=== PATIENT | male | born 1995 | race Caucasian/White ===

== ENCOUNTER 2016-12-15 16:34 | Emergency (ER) | payer BC ==
[~2016-12-15] VITALS: Ht 172.7 cm; Wt 76.0 kg
[~2016-12-15 16:34] MED LIST: CETI10TA84 PO
[2016-12-15 17:08] VITALS: TEMP 37.1; Ht 172.7 cm; Wt 76.0 kg
[2016-12-15] MEDS ORDERED: CLINDAMYCIN HCL 150 MG CAP PO ONE (18:15)
[2016-12-15] MEDS ORDERED: PERCOCET HOME PACK PO ONE (18:15)
[2016-12-15] MEDS ORDERED: OXYC-57 PO (18:21)
--- NOTE | 2016-12-15 18:23 | EMERGENCY ROOM VISIT NOTE ---
History First contact with patient: 17:28 Chief Complaint: WOUND INFECTION Stated Complaint: LARGE LUMP ABOVE TAILBONE, PAINFUL Nursing Triage Summary: patient states "I think I have a pilonidal cyst or something, a big lump by my tailbone, my friend has had a bunch and he said it sounds like that. I went to [facility] on Friday and they gave me a prescription for abx, but I knew I would be drinking this weekend so I didn't bother getting them" History of Present Illness The patient is a 21 year old male who presents to the Emergency Room with complaints of a painful mass above his tailbone for the last week. It is not draining anything. It is difficult to sit down. He was seen at [facility]. He prescribed antibiotics and pain killers. He has not filled the prescription. He denies any history of pilonidal cyst. Review of Systems 6 system review negative. Please see pertinent positives in the history of present illness section. Past Medical/Surgical History Otherwise healthy Social History Smoking Status: Never Smoker Alcohol Use: occasionally Current/Historical Medications Scheduled PRN Cetirizine (Zyrtec), 10 MG PO DAILY PRN for ALLERGIC REACTION Oxycodone/Acetaminophen 5MG/325MG (Percocet 5MG/325MG), 1-2 TABS PO Q4H PRN for Pain Physical Exam Vital Signs Date Time Temp Pulse Resp B/P (MAP) Pulse Ox O2 Delivery O2 Flow Rate FiO2 12/15/16 18:44 89 16 95/71 99 12/15/16 17:08 37.1 83 20 142/89 96 Room Air Physical Exam VITALS: Vitals are noted on the nurse's note and reviewed by myself. Vital signs stable. GENERAL: 21-year-old male, in no acute distress, nondiaphoretic, well-developed well-nourished. SKIN: There is an area of erythema and induration to the left of the gluteal cleft. No fluctuance. No pointing. Tenderness noted.. HEAD: Normocephalic atraumatic. MUSCULOSKELETAL: Strength 5/5 throughout. NEURO: Patient was alert and oriented to person place and time. Normal sensation to touch. No focal neurological deficits. Medical Decision & Procedures Medications Administered Medications (Trade) Dose Ordered Sig/Idalia Route Start Time Stop Time Status Last Admin Dose Admin Clindamycin HCl (Cleocin Cap) 300 mg NOW ONCE PO 12/15/16 18:15 12/15/16 18:16 DC 12/15/16 18:39 300 MG Oxycodone/ Acetaminophen (Percocet 5/ 325MG Home Pack) 1 homepack UD ONCE PO 12/15/16 18:15 12/15/16 18:16 DC 12/15/16 18:39 1 HOMEPACK ED Course The patient was seen and examined He was given 1 dose of clindamycin 300 mg He was given a home pack Percocet Discharge instructions were reviewed, and he was discharged in good condition Medical Decision Differential diagnosis: Abscess, cellulitis, pilonidal cyst This patient is a 21-year-old male that presented to the emergency department with complaints of a painful, erythematous mass above his tailbone. On exam, the patient does have a developing pilonidal cyst. Unfortunately, it is not drainable at this point. The patient was instructed to continue to do warm compresses. If it does not resolve on its own, he will return in 48 hours for further evaluation and possible incision and drainage. Of note, the patient was seen earlier this week at [facility]. He was prescribed clindamycin. He was told to continue taking this as prescribed. He was also given a prescription for Percocet for pain control. Medication Reconcilliation Current Medication List: was personally reviewed by me Blood Pressure Screening Patient's blood pressure: Normal blood pressure Impression Primary Impression: Pilonidal cyst Departure Information Dispostion Home / Self-Care Condition GOOD Prescriptions Oxycodone/Acetaminophen 5MG/325MG (PERCOCET 5MG/325MG) Tab 1-2 TABS PO Q4H Y for Pain, #15 TAB For Initial Treatment Prov: Katherin Kenyon PA-C 12/15/16 Referrals No Doctor, Assigned (PCP) Patient Instructions My [facility] Additional Instructions Please apply warm compresses, soak in a warm tub or take warm showers 3 times daily. Please take the antibiotics as prescribed. Ibuprofen 600 mg every 6 hours Percocet 1-2 tabs every 4 hours for severe pain. Do not drink alcohol or drive while taking this medication. This may be taken with ibuprofen, but avoid Tylenol If the pain and swelling does not go away, please return to the emergency department 48 hours for reevaluation. This will likely need to be drained. Please return sooner for any severe symptoms such as fever or severe, uncontrolled pain.
[2016-12-15 18:44] VITALS: BP 95/71; PULSE 89; O2SAT 99
== END 2016-12-15 18:47 | disposition home or self-care (01) ==
LOC: C.EDB 16:36 → C.EDD 18:47
DX: L05.91 Pilonidal cyst without abscess (principal)

== ENCOUNTER 2016-12-17 10:08 | Emergency (ER) | payer BC ==
[~2016-12-17] VITALS: Ht 172.7 cm; Wt 76.3 kg
[~2016-12-17 10:08] MED LIST changes: +OXYC-57 PO
[2016-12-17 10:11] VITALS: TEMP 36.8; Ht 172.7 cm; Wt 76.3 kg
[2016-12-17] MEDS ORDERED: LIDOCAINE/EPINEPHRINE 1% 20 ML VIAL INFIL STA (10:30)
[2016-12-17] MEDS ORDERED: CLC/300 PO (10:31)
[2016-12-17] MEDS ORDERED: OXYC-57 PO ×2 (10:32→11:52)
[2016-12-17] MEDS ORDERED: CEPH500C2 PO (11:22)
[2016-12-17] MEDS ORDERED: SULF800T23 PO ×2 (11:22→11:51)
[2016-12-17] MEDS ORDERED: CEPH500C PO (11:51)
[2016-12-17 11:54] VITALS: BP 113/68; PULSE 78; O2SAT 98
--- NOTE | 2016-12-17 11:54 | EMERGENCY ROOM VISIT NOTE ---
History First contact with patient: 10:24 Chief Complaint: WOUND INFECTION Stated Complaint: PILONIDAL CYST NEEDS DRAINED Nursing Triage Summary: pt reports seen here 2 days ago pilodial cyst told to come back today to have drained. History of Present Illness The patient is a 21 year old male who presents to the Emergency Room via private vehicle with complaints of "pilonidal cyst needs drained". The patient states he was seen her 2 days ago, for a possible cyst, but at that time it was not ready to be drained. He states he now feels much larger, and believes it should be drained. He has been on clindamycin. It is worsening. His tetanus is up-to-date, poorly so the best of his knowledge. He denies having this before. He states that he feels nauseous, believes this could be from the Percocet. Review of Systems A complete 6-point Review of Systems was discussed with the patient, with pertinent positives and negatives listed in the History of Present Illness. All remaining Review of Systems questions can be considered negative unless otherwise specified. Past Medical/Surgical History No pertinent. Family History High blood pressure Social History Smoking Status: Never Smoker Alcohol Use: occasionally Patient is a [employer] student. Current/Historical Medications Scheduled Cephalexin Monohydrate (Keflex), 500 MG PO QID Clindamycin HCl (Clindamycin HCl), 1 CAP PO QID Sulfa/Trimethoprim (Bactrim Ds 800MG/160MG), 1 TAB PO BID Scheduled PRN Oxycodone/Acetaminophen 5MG/325MG (Percocet 5MG/325MG), 1-2 TABLETS PO Q4H PRN for Pain Oxycodone/Acetaminophen 5MG/325MG (Percocet 5MG/325MG), 1 TAB PO Q6 PRN for Pain Physical Exam Vital Signs Date Time Temp Pulse Resp B/P (MAP) Pulse Ox O2 Delivery O2 Flow Rate FiO2 12/17/16 11:54 78 18 113/68 98 Room Air 12/17/16 10:11 36.8 98 18 147/79 96 Room Air Physical Exam VITAL SIGNS - Vital signs and nursing notes were reviewed. Stable. GENERAL - 21-year-old male appearing his stated age who is in no acute distress. Communicates well with provider and answers questions appropriately. SKIN - Large 3cm x 2cm raised, oval shaped abscess on left superior gluteal region. HEAD - NC/AT. EYES - Sclera anicteric. Medical Decision & Procedures Procedure I examined the patient. Verbal consent was obtained to perform the procedure. After saline and Betadine cleansing and 2 mL of 1% buffered lidocaine w/ epi anesthesia, the abscess was incised with a number 11 scalpel blade. A large amount of purulent material was released with more expressed by pressure. A swab was obtained for culture. The abscess cavity was further probed with a needle livery car driver and the deep pocket expressed. The abscess cavity was then copiously irrigated with sterile saline under pressure. The area was then packed with sterile packing. The area was cleaned with sterile saline and dressed with a bulky bandage. The patient tolerated the procedure well. Medical Decision Patient was seen and evaluated as above. He presents to us today with bilateral abscess. There is no fever. Consent was obtained. Region was identified. There is a lot of fluctuance here. 2 mL's of lidocaine were used to anesthetize. 11 blade was used to make a 2 mm vertical incision. Blood purulence was expressed. Culture was obtained. This was thoroughly irrigated with normal saline. Pockets were expressed as noted above. He tolerated this well. This was stressed with the dressing after packing. His antibiotic will be changed to mycin Keflex and Bactrim. At this time he appears stable from patient mentioned. He is to return in 48 hours for recheck. He was educated upon management, educated upon worrisome symptoms which to return, had questions answered at discharge, and was discharged home in good condition. In evaluation treatment this patient following differential diagnoses were entertained: Abscess, cyst, infection, sialitis, among others. Additional small prescription of Percocet was given for pain. In the treatment of this patient controlled medication was utilized and therefore the [facility], Prescription Drug Monitoring Program website was utilized to look up this patient. No concerns were identified that would prohibit or alter my treatment decision. Impression Primary Impression: Pilonidal cyst Departure Information Dispostion Home / Self-Care Condition GOOD Prescriptions Oxycodone/Acetaminophen 5MG/325MG (PERCOCET 5MG/325MG) Tab 1 TAB PO Q6 Y for Pain, #12 TAB For Initial Treatment Prov: Ta Warren, ILEANA 12/17/16 Sulfa/Trimethoprim (Bactrim Ds 800MG/160MG) Tab 1 TAB PO BID for 10 Days, #20 TAB Prov: Ta Warren PA-C 12/17/16 Cephalexin Monohydrate (Keflex) 500 Mg Cap 500 MG PO QID for 10 Days, #40 CAP Prov: Ta Warren PA-C 12/17/16 Referrals No Doctor, Assigned (PCP) Patient Instructions My [facility] Additional Instructions You were seen in the emergency department for your pilonidal abscess. I recommend stopping the clindamycin and changing to Keflex and Bactrim. Please take these as prescribed. Percocet for severe pain. Please do not take Tylenol and Percocet. Please return in 48 hours for recheck of your wound and potential repacking/ removal. Please do dressing changes once daily as we discussed. Please return with any new/concerning symptoms.
--- NOTE | 2016-12-20 16:55 | Pharmacy Progress Note ---
ED Pharmacist Culture FollowUp Date of Service: Dec 20, 2016. Patient with pilondial abscess, reported to the ER 3 times in past few days. The first visit was prescribed clinda, the second visit antibiotics were changed to keflex/bactrim and I &D performed and the third visit for packing removal. Culture grew coag neg staph and peptostreptococcus. Discussed with REJI benoit who saw the patient. If patient feels better, no need to restart clindamycin, but if doing worse or not improving can call in a rx. Called patient who reported he was feeling better. I informed him that at any time if he felt worse he could call back and we would call in a prescription for clindamycin to take in conjunction with his keflex and bactrim.
== END 2016-12-17 12:10 | disposition home or self-care (01) ==
LOC: C.EDB 10:09 → C.EDA 12:10
DX: L05.01 Pilonidal cyst with abscess (principal); R11.0 Nausea; Z82.49 Family history of ischemic heart disease and other diseases of the circulatory system

== ENCOUNTER 2016-12-19 10:31 | Emergency (ER) | payer BC ==
[~2016-12-19] VITALS: Ht 175.3 cm; Wt 75.4 kg
[~2016-12-19 10:31] MED LIST changes: +CEPH500C PO; +CEPH500C2 PO; -CETI10TA84 PO; +CLC/300 PO; +SULF800T23 PO
[2016-12-19 10:52] VITALS: BP 133/73; PULSE 90; TEMP 36.9; O2SAT 97; Ht 175.3 cm; Wt 75.4 kg
--- NOTE | 2016-12-19 16:08 | EMERGENCY ROOM VISIT NOTE ---
History First contact with patient: 11:04 Chief Complaint: PACKING REMOVAL Stated Complaint: REMOVAL PACKING FROM CYST AREA Nursing Triage Summary: here for packing removal from pylonidal cyst. History of Present Illness The patient is a 21 year old male who presents to the Emergency Room for packing removal from a pilonidal cyst that was drained in our department 2 days ago. The patient has been taking Keflex and Bactrim DS antibiotics as well. He reports persistent pressure in the region, but denies any significant pain or fever. He rates his discomfort a 5 out of 10 in triage. Review of Systems 6 system review was performed and was negative except for pertinent positives and negatives as indicated in history of present illness Past Medical/Surgical History Medical Problems: (1) No significant past medical history Surgical Problems: (1) No history of previous surgery Family History Unremarkable Social History Smoking Status: Never Smoker Alcohol Use: occasionally Marital Status: single Occupation Status: employed Current/Historical Medications Scheduled Cephalexin Monohydrate (Keflex), 1 CAP PO QID Sulfa/Trimethoprim (Bactrim Ds 800MG/160MG), 1 TAB PO BID Scheduled PRN Oxycodone/Acetaminophen 5MG/325MG (Percocet 5MG/325MG), 1-2 TABLETS PO Q4H PRN for Pain Allergies Coded Allergies: No Known Allergies (Unverified , 12/19/16) Physical Exam Vital Signs Date Time Temp Pulse Resp B/P (MAP) Pulse Ox O2 Delivery O2 Flow Rate FiO2 12/19/16 10:52 36.9 90 18 133/73 97 Room Air Physical Exam CONSTITUTIONAL: Healthy and well nourished. Alert and oriented X 3 with positive affect. GASTROINTESTINAL: The patient has no abdominal tenderness to palpation. MUSCULOSKELETAL: No focal tenderness to palpation through the lower lumbar spine or paraspinous muscles. INTEGUMENTARY: Examination shows packing within a pilonidal cyst I&D site. The packing was removed show mild purulent drainage near the surface. Otherwise there is no other significant fistula tracking or significant edema/induration. Medical Decision & Procedures ED Course Patient history and physical exam were performed. Nurse's notes were reviewed. Vital signs were reviewed and were normal. Packing was removed. The patient was encouraged to keep the area clean, watching for any signs of reoccurring infection. He was instructed to finish all current antibiotics. Review of preliminary cultures shows coag-negative Staphylococcus with no sensitivities ordered. Return to the emergency department for any worsening infection. The patient was happy with plan of care, and voiced understanding of all discharge instructions. Medical Decision Impression Primary Impression: Pilonidal cyst with abscess Departure Information Dispostion Home / Self-Care Condition [employer] HOME CARE DOCUMENTATION FORM, IMPORTANT VISIT INFORMATION Patient Instructions My [facility] Additional Instructions Continue and finish all antibiotics as previously prescribed. The drainage should continue for the next few days. Return to the emergency department for any signs of redeveloping infection.
== END 2016-12-19 11:24 | disposition home or self-care (01) ==
LOC: C.EDB 10:33 → C.EDD 11:24
DX: L05.01 Pilonidal cyst with abscess (principal)